=== PATIENT | female | born 1990 ===

== ENCOUNTER → 2017-07-14 | Outpatient (CLI) | payer OTHER | END | disposition home or self-care (01) | LOC: PPHC 13:02 | DX: Z02.0 Encounter for examination for admission to educational institution (principal) ==

== ENCOUNTER 2022-09-07 10:40 | Day surgery (SDC) | payer OTHER ==
[2022-09-07] MEDS ORDERED: HYDROXYCHLOROQ100 MG PO (13:59)
== END 2022-09-07 16:25 | disposition home or self-care (01) ==
LOC: CIR.AMB 10:40
PROVIDERS: ATTEND Specialist
DX: O02.1 Missed abortion (principal); O72.2 Delayed and secondary postpartum hemorrhage; Z88.6 Allergy status to analgesic agent; Z20.822 Contact with and (suspected) exposure to COVID-19

== ENCOUNTER 2024-03-29 05:08 | Inpatient (IN) | payer OTHER ==
[2024-03-29] VITALS (8 sets, daily range): BP systolic 100–133; BP diastolic 50–77; O2SAT 99
[~2024-03-29] VITALS: Ht 152.4 cm; Wt 78.5 kg
[~2024-03-29 05:08] MED LIST: HYDROXYCHLOROQ100 MG PO
[2024-03-29] MEDS ORDERED: PRENATAL CAPLE1 EAC1 PO (08:30)
[2024-03-29 08:41] LABS: URINE BILIRRUBIN Negative (NEGATIVE); URINE COLOR Yellow; URINE GLUCOSE Negative (NEGATIVE); URINE KETONE Negative (NEGATIVE); URINE LEUKOCYTE Moderate; URINE NITRATE Negative; URINE PROTEIN Negative (NEGATIVE); URINE UROBILINOGEN 0.2 E.U./dl
[2024-03-29 08:42] LABS: URINE BACTERIA 1387.1 uL (0.0-1933); URINE EPITHELIAL CELLS 53.4 uL (0.0-38.8); URINE RBC 8.8 uL (0.0-20.8); URINE WBC 227.8 uL (0.0-23.2)
[2024-03-29] MEDS ORDERED: RINGERS SOLUTION,LACTATED 1,000 ML IV SCH (08:45)
[2024-03-29] MEDS ORDERED: OXYTOCIN 500 ML IV SCH (08:45)
[2024-03-29 09:02] LABS: URINE APPEARANCE CLEAR; URINE BLOOD TRACE; URINE CAST 0.76 uL (0.0-1.40)
[2024-03-29 09:24] LABS: INR < 0.93; PARTIAL THROMBOPLASTIN TIME 27.3 SECONDS (22.0-34.0); PROTHROMBIN TIME 10.2 SECONDS (9.0-11.5)
[2024-03-29 09:34] LABS: HEMATOCRIT 38.6 % (36.0-45.00); MEAN CELL VOLUME 84.8 fL (80.00-100.00); MEAN CORPUSCULAR HEMOGLOBIN 28.5 pg (27.00-32.0); MEAN CORPUSCULAR HGB CONC 33.6 g/dl (32.0-36.0); PLATELET COUNT 178 K/uL (150-450); RED BLOOD COUNT 4.55 M/uL (4.00-6.00); RED CELL DISTRIBUTION WIDTH 15.6 % (11.5-14.5)
[2024-03-29 10:24] LABS: ALBUMIN 3.1 gm/dL (3.4-5.0); BILIRUBIN TOTAL 0.27 mg/dL (0.3-1.2); CALCIUM 9.5 mg/dL (8.5-10.1); CREATININE SERUM 0.49 mg/dL (0.55-1.02); GFR 144.56; GLOBULINA 3.9 G/DL (2.4-3.5); POTASSIUM 4.78 mEq/L (3.5-5.1)
[2024-03-29] MEDS ORDERED: OxyCODONE HCL/APAP UD (PERCOCET) PO PRN (18:00)
[2024-03-29] MEDS ORDERED: ACETAMINOPHEN 325 MG TABLET PO PRN (18:00)
[2024-03-29] MEDS ORDERED: LIDOCAINE HCL 1% 10ML VIAL IJ ONE (18:00)
[2024-03-29] MEDS ORDERED: CHLORHEXIDINE GLUCONATE 120 ML BOTTLE TOP ONE (18:00)
[2024-03-29] MEDS ORDERED: ERYTHROMYCIN BASE OPHT 1GM EACH TUBE OP ONE (18:00)
[2024-03-29] MEDS ORDERED: OXYTOCIN 20 UNITS/1000ML RL PIGGYBAG IV ONE (18:00)
[2024-03-30 01:50] LABS: HEMATOCRIT 35.9 % (36.0-45.00); MEAN CELL VOLUME 84.2 fL (80.00-100.00); MEAN CORPUSCULAR HEMOGLOBIN 28.1 pg (27.00-32.0); MEAN CORPUSCULAR HGB CONC 33.3 g/dl (32.0-36.0); PLATELET COUNT 175 K/uL (150-450); RED BLOOD COUNT 4.26 M/uL (4.00-6.00)
[2024-03-30 02:01] VITALS: BP 100/57
[2024-03-30 08:51] VITALS: BP 107/64
[2024-03-30] MEDS ORDERED: HYDROCORTISONE 2.5% 30 GM TUBE RECTAL SCH (09:00)
[2024-03-30] MEDS ORDERED: BENZOCAINE/MENTHOL 90 ML BOTTLE TOP SCH (09:00)
[2024-03-30 16:22] VITALS: BP 106/70
[2024-03-31 00:41] VITALS: BP 117/69
[2024-03-31 08:00] VITALS: BP 104/68
== END 2024-03-31 11:25 | disposition home or self-care (01) | DRG 807 ==
LOC: LDR 05:08 → OB/GYN 05:08 → LDR 05:26 → OB/GYN 20:29 → LDR 04-08 10:49
PROVIDERS: ADMIT Specialist; ATTEND Specialist
PROC: 10E0XZZ Delivery of Products of Conception, External Approach (ICD-10-PCS; principal; 2024-03-29)
PROC: 0W8NXZZ Division of Female Perineum, External Approach (ICD-10-PCS; 2024-03-29)
PROC: 4A1HXCZ Monitoring of Products of Conception, Cardiac Rate, External Approach (ICD-10-PCS; 2024-03-29)
DX: O80 Encounter for full-term uncomplicated delivery (principal); Z37.0 Single live birth; Z3A.38 38 weeks gestation of pregnancy; Z20.822 Contact with and (suspected) exposure to COVID-19